=== PATIENT | female | born 1960 | race Caucasian/White ===

== ENCOUNTER → 2019-07-09 | Emergency (ER) | payer BC ==
[~2019-07-09] VITALS: Ht 177.8 cm; Wt 74.8 kg
[~2019-07-09] MED LIST: ALBUTEROL HFA 90 MCG INHALER; HYDROMORPHONE 1 MG/1 ML DISP.SYRIN ONE; HYDROMORPHONE INJ 2 MG/ML DISP.SYRIN IV ONE; HYDROMORPHONE INJ 2 MG/ML DISP.SYRIN ONE; IV NS 0.9% 1,000 ML BAG IV ONE; KETOROLAC TROMETHAMINE INJ 30 MG/ML VIAL IV ONE; KETOROLAC TROMETHAMINE INJ 30 MG/ML VIAL ONE; LEVOTHYROXIN TAB 25MCG; ONDANSETRON HCL/PF 4 MG/2 ML VIAL IVP ONE; ONDANSETRON HCL/PF 4 MG/2 ML VIAL ONE; RALOXIFENE 60 MG
--- NOTE | 2019-07-09 08:09 | NUR ---
BIB RA C/O R L Q ABD PAIN AND R FLANK PAIN SINCE THIS MORNING. PATIENT CAME IN CRYING AND SCREAMING, NAUSEOUS. PATIENT CHANGED INTO GOWN, ATTACHED TO THE WOOD ENGRAVER. VITALS STABLE. KEPT COMFORTABLE. DR. WHITTINGTON GAVE VERBAL ORDER FOR ZOFRAN, TORADOL AND DILAUDID.
--- NOTE | 2019-07-09 08:12 | NUR ---
PATIENT'S IV ESTABLISHED ON RIGHT HAND G20. PATIENT SCREAMING AND CRYING IN PAIN. MEDICATION ADMINISTERED.
--- NOTE | 2019-07-09 08:15 | NUR ---
BLOOD DRAWN AND SENT TO LAB.
[2019-07-09 08:25] LABS: BASOPHILS # (AUTO) 0.1 /CMM (0.0-0.2); BASOPHILS % (AUTO) 1.1 % (0.0-2.0); EOSINOPHILS % (AUTO) 2.2 % (0.0-6.0); HEMATOCRIT 38 % (33-45); HEMOGLOBIN 12.3 g/dL (11.5-14.8); LYMPHOCYTES # (AUTO) 1.3 /CMM (0.8-4.8); LYMPHOCYTES % (AUTO) 26.7 % (20.0-44.0); MEAN CORPUSCULAR HGB CONC 33 g/dl (31.0-36.0); MEAN CORPUSCULAR VOLUME 85 fL (82-100); MONOCYTES # (AUTO) 0.4 /CMM (0.1-1.30); NEUTROPHILS # (AUTO) 3.1 /CMM (1.8-8.9); PLATELET COUNT (AUTO) 172 /CMM (150-450); RED BLOOD CELL COUNT(AUTO) 4.48 MIL/uL (4.0-5.2)
[2019-07-09 08:29] LABS: CREATININE 0.9 mg/dL (0.6-1.3); POTASSIUM 3.4 mmol/L (3.5-5.1)
--- NOTE | 2019-07-09 08:30 | NUR ---
PATIENT TAKEN TO CT.
[2019-07-09 08:35] LABS: ALBUMIN 3.9 g/dL (3.4-5.0); BILIRUBIN,DIRECT 0.1 mg/dL (0.0-0.2); BILIRUBIN,TOTAL 0.3 mg/dL (0.2-1.0); TOTAL PROTEIN, SERUM 6.8 g/dL (6.4-8.2)
--- NOTE | 2019-07-09 09:05 | NUR ---
PATIENT SCREAMING IN PAIN, DR. WHITTINGTON AT BEDSIDE.
--- NOTE | 2019-07-09 10:02 | NUR ---
Patient's pain has resolved. Patient a/ox4, verbally responsive. Family at bedside, will supervisor opening and picking the patient. IV removed. Catheter intact and site benign. Pressure and 4x4 applied to site. No bleeding noted. Patient discharged to home in stable condition. Written and verbal after care instructions given. Patient verbalizes understanding of instruction.
[2019-07-09 10:09] VITALS: BP 139/81
== END | disposition home or self-care (01) ==
LOC: ER 08:06
DX: N23 Unspecified renal colic (principal); Z79.899 Other long term (current) drug therapy
CPT/HCPCS: 36415; 74176; 80048; 80076; 83690; 85025; 96374; 96375; 96376; 99284; J1170 ×3; J1885; J2405; J7030